=== PATIENT | male | born 1935 | race Caucasian/White ===

== ENCOUNTER → 2016-08-03 | Day surgery (SDC) | payer MEDICARE ==
[~2016-08-03] MED LIST: LACTATED RINGER'S 1000 ML INJ 1,000 ML ONE; PROPOFOL 100 MG/10 ML INJ IV ONE
== END | disposition home or self-care (01) ==
LOC: ESDC 12:10
PROVIDERS: ATTEND Internal Medicine Gastroenterology
DX: K22.70 Barrett's esophagus without dysplasia (principal); R13.10 Dysphagia, unspecified; K29.70 Gastritis, unspecified, without bleeding; K44.9 Diaphragmatic hernia without obstruction or gangrene; K31.89 Other diseases of stomach and duodenum
CPT/HCPCS: 00740; 43239; 43248; 88305; 88312; J7120